=== PATIENT | male | born 1995 ===

== ENCOUNTER 2022-05-09 09:35 | Inpatient (IN) ==
[2022-05-09 10:23] LABS: ABS Lymphocytes 0.4 10^3/ul (1.0-4.8); ABS Monocytes 0.3 10^3/ul (0-0.8); ABS Neutrophils 5.2 10^3/ul (1.5-7.7); Eosinophil % 0.6 %; Hematocrit 42 % (42-52); Hemoglobin 13.6 g/dL (14.0-18.0); Lymphocyte % 6.7 %; Mean Corpuscular HGB Conc 32 g/dL (31-36); Mean Corpuscular Hemoglobin 28 pg (27-31); Mean Corpuscular Volume 85 fL (80-94); Mean Platelet Volume 9.2 fL (7.4-10.4); Platelet Count 185 10^3/uL (150-450); Red Blood Count 4.91 10^6 /uL (4.18-5.48); Red Cell Distribution Width 15 % (10-15)
[2022-05-09 11:09] LABS: Calcium 10.2 mg/dL (8.6-10.3); Potassium 4.3 mmol/L (3.5-5.0)
[2022-05-09 11:14] LABS: CRP High Sensitivity 20.18 mg/L (<2.00)
[2022-05-09] MEDS ORDERED: Vancomycin 1,500 MG in NS 0.9% 250 ml 250 ML IVPB ONE (11:42)
[2022-05-09] MEDS ORDERED: Piperacillin/Tazobac ADVAN 3.375 GM in NS 0.9% 100 ml BAG 100 ML IV ONE (11:44)
[2022-05-09 12:39] LABS: Erythrocyte Sed Rate 14 mm/Hr (0-14)
[2022-05-09] MEDS ORDERED: cefTRIAXone 1 gm/50 mL D5W 1 GM/50 ML BAG IV SCH (14:00)
[2022-05-09 14:11] LABS: HIV 4th Generation Nonreactive (Nonreactive)
[2022-05-09] MEDS ORDERED: Zosyn per Pharmacy NOTE FOLLOW UP SCH (15:00)
[2022-05-09] MEDS ORDERED: Enoxaparin 40 MG/0.4 ML SYR SUBCUT SCH (16:00)
[2022-05-09] MEDS: ZOSYN 3.375 GM Q8H per EXTENDED INFUSION IV SCH (16:21)
[2022-05-09 16:45] LABS: INR 1.18 (0.88-1.18)
[2022-05-09] MEDS ORDERED: HYDROcodone/ACETAMIN 5/325 mg TAB PO PRN (17:15)
[2022-05-09] MEDS ORDERED: Prochlorperazine 5 mg/ml 2 ml VIAL (10 mg) IV PRN (17:15)
[2022-05-09] MEDS ORDERED: Naloxone 0.4 mg VIAL 0.4 mg/ml 1 ml VIAL IV PRN (17:15)
[2022-05-09] MEDS ORDERED: fentaNYL 100 mcg/2 ml 50 MCG/ML VIAL IV PRN (17:15)
[2022-05-09] MEDS ORDERED: oxyCODONE/Acetamin 5/325 mg TAB PO PRN (17:15)
[2022-05-09] MEDS ORDERED: Lidocaine 2% PF 5 ML VIAL ONE (17:15)
[2022-05-09] MEDS ORDERED: Propofol 10 MG/ML 20 ML BTL ONE ×2 (17:15→18:05)
[2022-05-09] MEDS ORDERED: fentaNYL 250 mcg/5 ml 50 MCG/ML 5 ml VIAL (250 MCG) ONE (17:16)
[2022-05-09] MEDS ORDERED: Midazolam 2 mg/2 ml VIAL 1 mg/ml 2 ml VIAL (2 mg) ONE (17:16)
[2022-05-09] MEDS ORDERED: Bupivacaine 0.5% SDV PF 30ML VIAL ONE (17:27)
[2022-05-09] MEDS ORDERED: Dexamethasone IV 4 MG/ML VIAL 1 ml VIAL ONE (18:20)
[2022-05-09] MEDS ORDERED: Ondansetron 4 mg VIAL 2 MG/ML 2 ml VIAL ONE (18:20)
[2022-05-09] MEDS ORDERED: Phenylephrine 40 mcg/mL 10mL (400mcg) SYRINGE ONE (18:23)
[2022-05-09] MEDS ORDERED: fentaNYL 100 mcg/2 ml 50 MCG/ML VIAL ONE (18:49)
[2022-05-09] MEDS ORDERED: Prochlorperazine 5 mg/ml 2 ml VIAL (10 mg) ONE (18:49)
[2022-05-09] MEDS ORDERED: Bupivacaine 0.5% 50 ML MDV VIAL ONE (18:49)
[2022-05-09] MEDS ORDERED: oxyCODONE/Acetamin 5/325 mg TAB ONE (18:50)
[2022-05-09] MEDS ORDERED: HYDROcodone/ACETAMIN 5/325 mg TAB ONE (18:50)
[2022-05-09] MEDS: Enoxaparin 40 MG/0.4 ML SYR SUBCUT SCH (21:26)
[2022-05-10] MEDS: ZOSYN 3.375 GM Q8H per EXTENDED INFUSION IV SCH ×3 (00:33→17:40)
[2022-05-10 06:14] LABS: ABS Lymphocytes 0.3 10^3/ul (1.0-4.8); ABS Monocytes 0.7 10^3/ul (0-0.8); ABS Neutrophils 5.8 10^3/ul (1.5-7.7); Hematocrit 38 % (42-52); Hemoglobin 12.1 g/dL (14.0-18.0); Lymphocyte % 3.7 %; Mean Corpuscular HGB Conc 32 g/dL (31-36); Mean Corpuscular Hemoglobin 27 pg (27-31); Mean Corpuscular Volume 86 fL (80-94); Platelet Count 165 10^3/uL (150-450); Red Blood Count 4.42 10^6 /uL (4.18-5.48); Red Cell Distribution Width 15 % (10-15); White Blood Count 6.8 10^3/uL (3.5-10.8)
[2022-05-10 06:32] LABS: Albumin 4.2 g/dL (3.2-5.2); Calcium 8.6 mg/dL (8.6-10.3); Potassium 4.2 mmol/L (3.5-5.0); Total Bilirubin 0.4 mg/dL (0.2-1.0)
[2022-05-10 06:38] LABS: Albumin/Globulin Ratio 1.9 (1-3); Globulin 2.2 g/dL (2-4); Total Protein 6.4 g/dL (6.4-8.9); eGFR CKD-EPI 87.8 (>60)
[2022-05-10 09:52] LABS: Ferritin 227.3 ng/mL (24-336)
[2022-05-10 09:56] LABS: Folate 10.8 ng/mL (5.90-24.80)
[2022-05-10] MEDS ORDERED: Tetan/Diph/Pertus SYR(Tdap) 0.5 ML SYR(BOOSTRIX) use SYR contains LATEX IM ONE (15:00)
[2022-05-10] MEDS: Enoxaparin 40 MG/0.4 ML SYR SUBCUT SCH (20:16)
[2022-05-11] MEDS: ZOSYN 3.375 GM Q8H per EXTENDED INFUSION IV SCH ×3 (00:17→17:32)
[2022-05-11 06:17] LABS: ABS Lymphocytes 0.9 10^3/ul (1.0-4.8); ABS Monocytes 0.4 10^3/ul (0-0.8); ABS Neutrophils 2.5 10^3/ul (1.5-7.7); Eosinophil % 0.2 %; Hematocrit 37 % (42-52); Hemoglobin 12.1 g/dL (14.0-18.0); Lymphocyte % 22.6 %; Mean Corpuscular HGB Conc 33 g/dL (31-36); Mean Corpuscular Hemoglobin 28 pg (27-31); Mean Corpuscular Volume 85 fL (80-94); Mean Platelet Volume 9.5 fL (7.4-10.4); Nucleated Red Blood Cells % 0.1; Platelet Count 136 10^3/uL (150-450); Red Blood Count 4.37 10^6 /uL (4.18-5.48); Red Cell Distribution Width 15 % (10-15); White Blood Count 3.9 10^3/uL (3.5-10.8)
[2022-05-11 06:59] LABS: Calcium 8.4 mg/dL (8.6-10.3); Potassium 4.2 mmol/L (3.5-5.0)
[2022-05-11 07:04] LABS: C Reactive Protein 22.89 mg/L (<8.01); eGFR CKD-EPI 99.9 (>60)
[2022-05-11] MEDS ORDERED: Acetaminophen IV 1 GM/100ML 1,000 MG/100 ML BAG IV PRN (11:01)
[2022-05-11] MEDS ORDERED: Iohexol 350 (CONTRAST) 500 ML MDV IV ONE (15:24)
[2022-05-11] MEDS: Enoxaparin 40 MG/0.4 ML SYR SUBCUT SCH (20:44)
[2022-05-11 22:38] LABS: Urine Appearance Clear; Urine Bilirubin Negative (Negative); Urine Blood Negative (Negative); Urine Color Yellow; Urine Glucose Negative (Negative); Urine Ketones Negative (Negative); Urine Nitrite Negative (Negative); Urine Protein Negative (Negative); Urine Specific Gravity 1.041 (1.002-1.030); Urine Urobilinogen Negative (Negative)
[2022-05-12] MEDS: ZOSYN 3.375 GM Q8H per EXTENDED INFUSION IV SCH ×2 (00:02→07:58)
[2022-05-12 06:52] LABS: C Reactive Protein 13.36 mg/L (<8.01); Calcium 8.7 mg/dL (8.6-10.3); Potassium 3.7 mmol/L (3.5-5.0); eGFR CKD-EPI 98.8 (>60)
[2022-05-12 07:12] LABS: Hematocrit 40 % (42-52); Mean Corpuscular HGB Conc 32 g/dL (31-36); Mean Corpuscular Hemoglobin 27 pg (27-31); Mean Corpuscular Volume 84 fL (80-94); Mean Platelet Volume 10.1 fL (7.4-10.4); Platelet Count 147 10^3/uL (150-450); Red Blood Count 4.78 10^6 /uL (4.18-5.48); Red Cell Distribution Width 14 % (10-15); White Blood Count 2.1 10^3/uL (3.5-10.8)
[2022-05-12 08:25] LABS: ABS Lymphocytes 1.2 10^3/ul (1.0-4.8); ABS Monocytes 0.2 10^3/ul (0-0.8); ABS Neutrophils 0.6 10^3/ul (1.5-7.7); Eosinophil % 0.4 %; Lymphocyte % 57.1 %; Nucleated Red Blood Cells % 0.3
[2022-05-12 09:54] LABS: Hematocrit 42 % (42-52); Hemoglobin 13.4 g/dL (14.0-18.0); Mean Corpuscular HGB Conc 32 g/dL (31-36); Mean Corpuscular Hemoglobin 27 pg (27-31); Mean Corpuscular Volume 85 fL (80-94); Mean Platelet Volume 9.4 fL (7.4-10.4); Platelet Count 143 10^3/uL (150-450); Red Blood Count 4.91 10^6 /uL (4.18-5.48); Red Cell Distribution Width 15 % (10-15)
[2022-05-12 09:58] LABS: ABS Neutrophils 0.7 10^3/ul (1.5-7.7)
[2022-05-12 11:02] LABS: ABS Lymphocytes 1.1 10^3/ul (1.0-4.8); ABS Monocytes 0.2 10^3/ul (0-0.8)
[2022-05-12] MEDS: Amoxicillin/Clavul 875/125 TAB (Augmentin 875 tab) PO SCH ×2 (11:55→13:12)
[2022-05-12] MEDS ORDERED: Amoxicillin/Clavul ORALSYR 80 MG/ML (400 MG/5 ML) PO SCH (13:00)
[2022-05-12] MEDS: Enoxaparin 40 MG/0.4 ML SYR SUBCUT SCH (19:44)
[2022-05-13 07:03] LABS: Hematocrit 41 % (42-52); Hemoglobin 13.5 g/dL (14.0-18.0); Mean Corpuscular HGB Conc 33 g/dL (31-36); Mean Corpuscular Hemoglobin 28 pg (27-31); Mean Corpuscular Volume 85 fL (80-94); Mean Platelet Volume 9.9 fL (7.4-10.4); Platelet Count 151 10^3/uL (150-450); Red Blood Count 4.85 10^6 /uL (4.18-5.48); Red Cell Distribution Width 15 % (10-15); White Blood Count 2.2 10^3/uL (3.5-10.8)
[2022-05-13 07:31] LABS: C Reactive Protein 8.48 mg/L (<8.01); Calcium 8.8 mg/dL (8.6-10.3); Potassium 4.3 mmol/L (3.5-5.0); eGFR CKD-EPI 113.9 (>60)
[2022-05-13 08:38] LABS: ABS Lymphocytes 1.5 10^3/ul (1.0-4.8); ABS Monocytes 0.2 10^3/ul (0-0.8); ABS Neutrophils 0.4 10^3/ul (1.5-7.7); Eosinophil % 1.7 %; Lymphocyte % 66.1 %; Nucleated Red Blood Cells % 0.5
[2022-05-13] MEDS: Enoxaparin 40 MG/0.4 ML SYR SUBCUT SCH (21:09)
[2022-05-14 06:52] LABS: ABS Eosinophils 0.1 10^3/ul (0-0.6); ABS Lymphocytes 1.3 10^3/ul (1.0-4.8); ABS Monocytes 0.3 10^3/ul (0-0.8); Hematocrit 43 % (42-52); Hemoglobin 13.9 g/dL (14.0-18.0); Lymphocyte % 48.7 %; Mean Corpuscular HGB Conc 32 g/dL (31-36); Mean Corpuscular Hemoglobin 28 pg (27-31); Mean Corpuscular Volume 85 fL (80-94); Mean Platelet Volume 9.1 fL (7.4-10.4); Nucleated Red Blood Cells % 0.3; Platelet Count 151 10^3/uL (150-450); Red Blood Count 5.04 10^6 /uL (4.18-5.48); Red Cell Distribution Width 14 % (10-15); White Blood Count 2.7 10^3/uL (3.5-10.8)
[2022-05-14 12:54] VITALS: BP 134/78
== END 2022-05-14 14:00 | DRG 316 ==
LOC: ED 09:35 → EDHOLD 09:35 → MED 20:42 → SUATTDRO 05-10 14:15
PROVIDERS: ADMIT Internal Medicine; ATTEND Internal Medicine